=== PATIENT | female | born 2000 | race African-American/Black ===

== ENCOUNTER 2019-09-07 01:10 | Emergency (ER) | payer OTHER ==
[~2019-09-07] VITALS: Ht 160 cm; Wt 49.9 kg
[2019-09-07 01:59] LABS: ABSOLUTE NEUTROPHILS 7.1 thou/uL (1.4-8.2); BASOPHILS 0.7 % (0.0-2.0); EOSINOPHILS 0.6 % (0.0-3.0); HEMATOCRIT 38.9 % (37.0-47.0); HEMOGLOBIN 12.8 gm/dL (12.0-15.0); LYMPHOCYTES 11.8 % (24.0-44.0); MCH 28.1 pg (26.0-34.0); MCHC 32.8 g/dL (28.0-37.0); MCV 85.8 fL (80.0-100.0); MONOCYTES 5.3 % (1.0-8.0); PLATELET COUNT 259 thou/uL (150-400); POLYS 81.6 % (36.0-66.0); RBC 4.54 mil/uL (4.20-5.00); RDW 15.2 % (10.5-14.5); WBC 8.7 thou/uL (4.0-11.0)
[2019-09-07 02:05] LABS: URINE BILIRUBIN NEGATIVE (Negative); URINE BLOOD 3+ (Negative); URINE CLARITY CLEAR; URINE COLOR YELLOW; URINE GLUCOSE-RANDOM* NEGATIVE (Negative); URINE KETONES NEGATIVE (Negative); URINE NITRITE-REFLEX NEGATIVE (Negative); URINE PROTEIN (DIPSTICK) 1+ (Negative); URINE SPECIFIC GRAVITY >= 1.030 (1.005-1.035); URINE UROBILINOGEN 0.2 E.U./dl (0.2-1.0)
[2019-09-07 02:08] LABS: URINE LEUKOCYTES-REFLEX 1+ (Negative)
[2019-09-07 02:09] LABS: CALCIUM 9.4 mg/dL (8.5-10.1); CREATININE 0.9 mg/dL (0.6-1.0); POTASSIUM 3.8 mmol/L (3.5-5.1)
[2019-09-07 02:18] LABS: CASTS None Seen /LPF (None Seen); MUCUS 0-3 Light strn/LPF (None Seen); SQUAMOUS 4-10 Moderate /LPF (0-3)
[2019-09-07 02:19] LABS: CRYSTALS None Seen /LPF (None Seen); URINE RBC 3-10 Few /HPF (0-2); URINE WBC-REFLEX None Seen /HPF (0-5)
[2019-09-07 02:48] VITALS: BP 105/68
== END 2019-09-07 02:45 | disposition home or self-care (01) ==
LOC: ER 01:10
PROVIDERS: Emergency Medicine
DX: R10.30 Lower abdominal pain, unspecified (principal); R11.2 Nausea with vomiting, unspecified; Z88.6 Allergy status to analgesic agent